=== PATIENT | male | born 1975 | race African-American/Black ===

== ENCOUNTER 2017-01-25 13:34 | Emergency (ER) | payer OTHER ==
[2017-01-25 13:38] VITALS: BP 138/76; PULSE 73; TEMP 98; BMI 25.7
[2017-01-25] MEDS ORDERED: AZITHROMYCIN 250 MG TABLET (FP) PO ONE (14:41)
[2017-01-25] MEDS ORDERED: AZITHROMYCIN 1 GM PACKET ONE (14:44)
[2017-01-25 14:46] LABS: URINE APPEARANCE CLEAR; URINE BILIRUBIN NEGATIVE (NEGATIVE); URINE BLOOD 1+ (NEGATIVE); URINE COLOR LTYELLOW; URINE GLUCOSE (UA) NEGATIVE (NEGATIVE); URINE KETONE NEGATIVE (NEGATIVE); URINE LEUK ESTERASE TRACE (NEGATIVE); URINE NITRITE NEGATIVE (NEGATIVE); URINE PROTEIN NEGATIVE (NEGATIVE); URINE UROBILINOGEN NEGATIVE mg/dL (0.2-1.0)
[2017-01-25 14:48] LABS: URINE MUCUS RARE; URINE RBC 1 /hpf (0-3); URINE WBC 3 /hpf (3-5)
--- NOTE | 2017-01-25 14:49 | PDOC ---
History of Present Illness - General Chief Complaint: Urinary Problem Stated Complaint: TINGLING FEELING Time Seen by Provider: 01/25/17 14:28 - History of Present Illness Initial Comments: 01/25/17 14:39 CHIEF COMPLAINT: burning while urinating HISTORY OF PRESENT ILLNESS: 41 yo M with no PMH presents to ED with burning while urinating since yesterday. Patient reports that he is sexually active and uses protection "But the condom did break, so that's why i'm here." He denies any fever, nausea, vomiting, diarrhea, chills, or penile discharge. PAST MEDICAL HISTORY: Denies past medical history FAMILY HISTORY: Denies SOCIAL HISTORY: Denies tobacco, alcohol, illicit drug use. SURGICAL HISTORY: Denies ALLERGIES: No known drug allergies REVIEW OF SYSTEMS General/Constitutional: Denies fever or chills. Denies weakness, weight change. HEENT: Denies change in vision. Denies ear pain or discharge. Denies sore throat. Cardiovascular: Denies chest pain or shortness of breath. Respiratory: Denies cough, wheezing, or hemoptysis. Gastrointestinal: Denies nausea, vomiting, diarrhea or constipation. Denies rectal bleeding. Genitourinary: "It eastman when I use the bathroom." PHYSICAL EXAM General Appearance: Well-appearing, appropriately dressed. No apparent distress. HEENT: EOMI, PERRLA. No photophobia, scleral icterus. Respiratory/Chest: Lungs CTAB. Cardiovascular: RRR. S1, S2. Gastrointestinal/Abdominal: Normal bowel sounds. Abdomen soft, non-distended. No tenderness or rebound tenderness. No organomegaly, pulsatile mass, guarding , hernia, hepatomegaly, splenomegaly. Genitourinary: No penile discharge, no lesions. Musculoskeletal/Extremities: Normal inspection. FROM of all extremities, normal capillary refill. Pelvis Stable. No CVA tenderness. No tenderness to extremities, pedal edema, swelling, erythema or deformity. Integumentary: Appropriate color, dry, warm. No cyanosis, erythema, jaundice or rash Neurologic: fitness coordinator II-XII intact. Fully oriented, alert. Appropriate mood/affect. Motor strength 5/5. No appreciable EOM palsy, facial droop or sensory deficit. 01/25/17 14:43 Past History - Past Medical History Allergies/Adverse Reactions: Allergies Allergy/AdvReac Type Severity Reaction Status Date / Time No Known Allergies Allergy Verified 01/25/17 13:38 Home Medications: Ambulatory Orders NK [No Known Home Medication] 05/12/16 Cancer: No Cardiac Disorders: No CVA: No COPD: No CHF: No DVT: No Dementia: No Suicide Attempt (Hx): No - Surgical History Abdominal Surgery: No Appendectomy: No Cardiac Surgery: No Cholecystectomy: No Gastric Stapling: No GI Surgery: No Lung Surgery: No Neurologic Surgery: No Orthopedic Surgery: No - Immunization History Immunization Up to Date: Yes - Psycho/Social/Smoking Cessation Hx Anxiety: No Suicidal Ideation: No Smoking Status: Yes Smoking History: Current every day smoker Have you smoked in the past 12 months: Yes Number of Cigarettes Smoked Daily: 20 Information on smoking cessation initiated: No 'Breaking Loose' booklet given: 04/26/14 Hx Alcohol Use: No Drug/Substance Use Hx: Yes Substance Use Type: Marijuana *Physical Exam - Vital Signs Last Vital Signs Temp Pulse Resp BP Pulse Ox 98 F 73 18 138/76 98 01/25/17 13:36 01/25/17 13:36 01/25/17 13:36 01/25/17 13:36 01/25/17 13:36 Medical Decision Making - Medical Decision Making 01/25/17 14:49 41 yo M with no PMH presents to ED with burning while urinating since yesterday. -UA, Ucx, Ct/GC -azithromycin, cefitriaxone Advised patient of signs and symptoms for return to ED. Patient verbalized understanding and agrees to plan. *DC/Admit/Observation/Transfer Diagnosis at time of Disposition: Possible exposure to STD - Discharge Dispostion Disposition: HOME Condition at time of disposition: Stable Admit: No - Referrals Referrals: Yan Lyles MD, MD [Primary Care Provider] - - Patient Instructions Printed Discharge Instructions: DI for Chlamydia, DI for Gonorrhea Additional Instructions: Please call us back in 3 days if you do not hear back from us regarding your urine culture. If you experience persistent symptoms, please follow up with your primary care doctor.
== END 2017-01-25 15:03 | disposition home or self-care (01) ==
LOC: JERFT 13:34
DX: Z20.2 Contact with and (suspected) exposure to infections with a predominantly sexual mode of transmission (principal)
CPT/HCPCS: 36415; 81003; 81015; 87086; 87491; 87591; 96372; 99281-25

== ENCOUNTER 2017-03-21 11:21 | Emergency (ER) | payer OTHER ==
[2017-03-21 11:25] VITALS: BP 142/80; PULSE 83; TEMP 98; BMI 25.0
--- NOTE | 2017-03-21 11:46 | PDOC ---
History of Present Illness - General Chief Complaint: Edema Stated Complaint: LIP PAIN Time Seen by Provider: 03/21/17 11:28 History Source: Patient Exam Limitations: No Limitations - History of Present Illness Initial Comments: 03/21/17 11:39 41 yr male with painful sore to the inside lower lip causing pain to the lower jaw. Pt denies fever or chills, no diff swallowing. no history of cold sores. Past History - Past Medical History Allergies/Adverse Reactions: Allergies Allergy/AdvReac Type Severity Reaction Status Date / Time No Known Allergies Allergy Verified 03/21/17 11:25 Home Medications: Ambulatory Orders Amoxicillin/Potassium Clav [Augmentin 875-125 Tablet] 1 each PO BID #10 tablet 03/21/17 Chlorhexidine Gluconate [Peridex -] 15 ml MM BID #1 btl 03/21/17 Cancer: No Cardiac Disorders: No CVA: No COPD: No CHF: No DVT: No Dementia: No Suicide Attempt (Hx): No - Surgical History Abdominal Surgery: No Appendectomy: No Cardiac Surgery: No Cholecystectomy: No Gastric Stapling: No GI Surgery: No Lung Surgery: No Neurologic Surgery: No Orthopedic Surgery: No - Immunization History Immunization Up to Date: Yes - Psycho/Social/Smoking Cessation Hx Anxiety: No Suicidal Ideation: No Smoking Status: Yes Smoking History: Current every day smoker Have you smoked in the past 12 months: Yes Number of Cigarettes Smoked Daily: 20 Information on smoking cessation initiated: No 'Breaking Loose' booklet given: 04/26/14 Hx Alcohol Use: No Drug/Substance Use Hx: Yes Substance Use Type: Marijuana *Physical Exam - Vital Signs Last Vital Signs Temp Pulse Resp BP Pulse Ox 98 F 83 18 142/80 98 03/21/17 11:22 03/21/17 11:22 03/21/17 11:22 03/21/17 11:22 03/21/17 11:22 - Physical Exam General Appearance: Yes: Nourished, Appropriately Dressed HEENT: positive: EOMI, MARILEE, Other (lower inside lip left side with white round shiny ulcer approximate 0.5cm no drainage , no redness, ttp) Respiratory/Chest: positive: Lungs Clear, Normal Breath Sounds Cardiovascular: positive: Regular Rhythm, Regular Rate Extremity: positive: Normal Capillary Refill, Normal Inspection, Normal Range of Motion Integumentary: positive: Normal Color, Dry, Warm Medical Decision Making - Medical Decision Making 03/21/17 11:49 cc: sore to lower lip with swelling to lower lip no fever or chills, no recent dental work will prescribe peridex oral solution, augmentin to cover for any gum/dental infection as pt has poor dentition, plaque to teeth no lymphadenopathy pt agrees with plan for follow up with the dentist as he understands the ulcer must be followed up pt will return if any worsening symptoms *DC/Admit/Observation/Transfer Diagnosis at time of Disposition: Mouth ulcer - Prescriptions Prescriptions: Amoxicillin/Potassium Clav [Augmentin 875-125 Tablet] 1 each PO BID #10 tablet Chlorhexidine Gluconate [Peridex -] 15 ml MM BID #1 btl - Patient Instructions Additional Instructions: follow with the dentist next week for follow up on the sore in your mouth use the mouthwash as directed take the antibiotics as directed return if any worsening symptoms
== END 2017-03-21 12:13 | disposition home or self-care (01) ==
LOC: JERFT 11:21
DX: K12.1 Other forms of stomatitis (principal)
CPT/HCPCS: 99281-25

== ENCOUNTER 2017-03-24 09:26 | Emergency (ER) | payer OTHER ==
[2017-03-24 09:35] VITALS: BP 143/79; PULSE 72; TEMP 98.3; BMI 25.9
--- NOTE | 2017-03-24 10:59 | PDOC ---
History of Present Illness - General Chief Complaint: Pain Stated Complaint: REVISIT/ SWOLLEN LIP Time Seen by Provider: 03/24/17 10:43 History Source: Patient Exam Limitations: No Limitations - History of Present Illness Initial Comments: 03/24/17 11:00 Patient is a 41-year-old male currently on antibiotics for oral injury with left lower lip swelling patient states that injury has healed has been on Augmentin and oral mouthwash, still with intermittent swelling of lower lip. Patient was concerned states he was at a club the other day kissing someone and scared he may have an STD however there is no oral lesions noted. Past Medical History: Denies. Allergies: No known allergies Medications: Augmentin and Peridex Family History: Non-contributory Social History: Denies smoking, alcohol use, or IVDU Review of Systems GENERAL/CONSTITUTIONAL: No fever or chills. No weakness. No weight change. HEAD, EYES, EARS, NOSE AND THROAT: No change in vision. No ear pain or discharge. No sore throat. CARDIOVASCULAR: No chest pain or shortness of breath. RESPIRATORY: No cough, wheezing, or hemoptysis. GASTROINTESTINAL: No nausea, vomiting, diarrhea or constipation. No rectal bleeding. GENITOURINARY: No dysuria, frequency, or change in urination. MUSCULOSKELETAL: No joint or muscle swelling or pain. No neck or back pain. SKIN : No rash or easy bruising. Swelling to left lower lip, resolving NEUROLOGIC: No headache, vertigo, loss of consciousness, or loss of sensation. PSYCHIATRIC: No depression or anxiety. ENDOCRINE: No increased thirst. No abnormal weight change. HEMATOLOGIC/LYMPHATIC: No anemia, easy bleeding, or history of blood clots. No lymphadenopathy ALLERGIC/IMMUNOLOGIC: No hives or skin allergy. No latex allergy. Physical Exam: GENERAL: The patient is awake, alert, and fully oriented, in no acute distress. ENT: Ears normal, nares patent, oropharynx clear without exudates. Moist mucous membranes. No uvula deviation. Mild swelling to left lower lip, resolving as per patient no lesions or lacerations or abrasions noted NECK: Normal range of motion, supple without lymphadenopathy, JVD, or masses. LUNGS: Breath sounds equal, clear to auscultation bilaterally. No wheezes, and no crackles. NEUROLOGICAL: Cranial nerves II through XII grossly intact. Normal speech, normal gait. PSYCH: Normal mood, normal affect. SKIN: Warm, Dry, normal turgor, no rashes or lesions noted. Mild edema to left lateral lower lip Past History - Past Medical History Allergies/Adverse Reactions: Allergies Allergy/AdvReac Type Severity Reaction Status Date / Time No Known Allergies Allergy Verified 03/24/17 09:32 Home Medications: Ambulatory Orders Amoxicillin/Potassium Clav [Augmentin 875-125 Tablet] 1 each PO BID #10 tablet 03/21/17 Chlorhexidine Gluconate [Peridex -] 15 ml MM BID #1 btl 03/21/17 Cancer: No Cardiac Disorders: No CVA: No COPD: No CHF: No DVT: No Dementia: No Other medical history: none - Surgical History Abdominal Surgery: No Appendectomy: No Cardiac Surgery: No Cholecystectomy: No Gastric Stapling: No GI Surgery: No Lung Surgery: No Neurologic Surgery: No Orthopedic Surgery: No - Immunization History Immunization Up to Date: Yes - Suicide/Smoking/Psychosocial Hx Smoking Status: Yes Smoking History: Current every day smoker Have you smoked in the past 12 months: Yes Number of Cigarettes Smoked Daily: 20 Information on smoking cessation initiated: Yes 'Breaking Loose' booklet given: 03/24/17 Hx Alcohol Use: No Drug/Substance Use Hx: No Substance Use Type: Marijuana *Physical Exam - Vital Signs Last Vital Signs Temp Pulse Resp BP Pulse Ox 98.3 F 72 18 143/79 100 03/24/17 09:33 03/24/17 09:33 03/24/17 09:33 03/24/17 09:33 03/24/17 09:33 Medical Decision Making - Medical Decision Making 03/24/17 11:04 A/P: Patient here for evaluation of resolving swelling to left lateral lower lip patient reports he had an open superficial laceration to inner left lower lip which has resolved has been on Augmentin. Asked patient states he still has this intermittent left lower lip swelling which she was concerned about concerned he may have an STD after kissing a girl at a bar. To patient that there is no prodromal pain, no open lesions, low suspicion for herpes. Patient denies any oral sex. There is no physical evidence of herpetic ulcers. We'll DC patient home, Motrin for swelling, continue oral antibiotics *DC/Admit/Observation/Transfer Diagnosis at time of Disposition: Lip swelling - Discharge Dispostion Disposition: HOME Condition at time of disposition: Good Admit: No - Referrals Referrals: Yan Lyles MD, MD [Primary Care Provider] - - Patient Instructions Additional Instructions: Continue your current antibiotics, if symptoms persist greater than 1 week follow-up with dental if any lesions present return to emergency department - Post Discharge Activity Work/School Note: Back to Work
== END 2017-03-24 11:02 | disposition home or self-care (01) ==
LOC: JERFT 09:26
DX: K13.0 Diseases of lips (principal)
CPT/HCPCS: 99281-25

== ENCOUNTER 2017-04-01 19:46 | Emergency (ER) | payer OTHER ==
[2017-04-01 20:02] VITALS: BP 144/92; PULSE 72; TEMP 98.4; BMI 25.0
[2017-04-01 20:21] LABS: URINE APPEARANCE CLEAR; URINE BILIRUBIN NEGATIVE (NEGATIVE); URINE BLOOD NEGATIVE (NEGATIVE); URINE COLOR YELLOW; URINE GLUCOSE (UA) NEGATIVE (NEGATIVE); URINE KETONE NEGATIVE (NEGATIVE); URINE LEUK ESTERASE NEGATIVE (NEGATIVE); URINE NITRITE NEGATIVE (NEGATIVE); URINE PROTEIN NEGATIVE (NEGATIVE); URINE UROBILINOGEN NEGATIVE mg/dL (0.2-1.0)
--- NOTE | 2017-04-01 21:09 | PDOC ---
History of Present Illness - General Chief Complaint: Urinary Problem Stated Complaint: STOMACH PAIN Time Seen by Provider: 04/01/17 20:08 History Source: Patient Exam Limitations: No Limitations - History of Present Illness Initial Comments: 04/01/17 20:19 Patient is a 41-year-old male with no past medical history presents to the emergency department tonight complaining of tingling sensation when he. Patient states that he was sexually active with a new woman a couple days ago when the condom broke. He is fearful that he has an STD. Presents for the "STD shot". Denies fevers, chills, discharge, hematuria, frequency, urgency, dysuria. Past History - Travel Traveled outside of the country in the last 30 days: No Close contact w/someone who was outside of country & ill: No - Past Medical History Allergies/Adverse Reactions: Allergies Allergy/AdvReac Type Severity Reaction Status Date / Time No Known Allergies Allergy Verified 04/01/17 20:02 Home Medications: Ambulatory Orders NK [No Known Home Medication] 04/01/17 Cancer: No Cardiac Disorders: No CVA: No COPD: No CHF: No DVT: No Dementia: No - Surgical History Abdominal Surgery: No Appendectomy: No Cardiac Surgery: No Cholecystectomy: No Gastric Stapling: No GI Surgery: No Lung Surgery: No Neurologic Surgery: No Orthopedic Surgery: No - Immunization History Immunization Up to Date: Yes - Suicide/Smoking/Psychosocial Hx Smoking Status: Yes Smoking History: Current every day smoker Have you smoked in the past 12 months: Yes Number of Cigarettes Smoked Daily: 20 Information on smoking cessation initiated: No 'Breaking Loose' booklet given: 03/24/17 Hx Alcohol Use: No Drug/Substance Use Hx: No Substance Use Type: Marijuana Review of Systems - Review of Systems Able to Perform ROS?: Yes Comments:: 04/01/17 21:25 CONSTITUTIONAL: Absent: fever, chills, diaphoresis, generalized weakness, malaise, loss of appetite HEENT: Absent: rhinorrhea, nasal congestion, throat pain, throat swelling, difficulty swallowing, mouth swelling, ear pain, eye pain, visual Changes CARDIOVASCULAR: Absent: chest pain, loss of consciousness, palpitations, irregular heart rate, peripheral edema RESPIRATORY: Absent: cough, shortness of breath, dyspnea with exertion, orthopnea, wheezing, stridor, hemoptysis GASTROINTESTINAL: Absent: abdominal pain, abdominal distension, nausea, vomiting, diarrhea, constipation, melena, hematochezia GENITOURINARY: Present: Tingling when urinating Absent: dysuria, frequency, urgency, hesitancy , hematuria, flank pain, genital pain MUSCULOSKELETAL: Absent: myalgia, arthralgia, joint swelling SKIN: Absent: rash, itching, pallor HEMATOLOGIC/IMMUNOLOGIC: Absent: easy bleeding, easy bruising, lymphadenopathy, frequent infections ENDOCRINE: Absent: unexplained weight gain, unexplained weight loss, heat intolerance, cold intolerance NEUROLOGIC: Absent: headache, focal weakness or paresthesias, dizziness, unsteady gait, seizure, mental status changes, bladder or bowel incontinence PSYCHIATRIC: Absent: anxiety, depression, suicidal or homicidal ideation, hallucinations. Is the patient limited Bulgarian proficient: No *Physical Exam - Vital Signs Last Vital Signs Temp Pulse Resp BP Pulse Ox 98.4 F 72 18 144/92 99 04/01/17 20:00 04/01/17 20:00 04/01/17 20:00 04/01/17 20:00 04/01/17 20:00 - Physical Exam Comments: 04/01/17 21:25 GENERAL: [The patient is awake, alert, and fully oriented, in no acute distress. ] HEAD: [Normal with no signs of trauma.] EYES: [Pupils equal, round and reactive to light, extraocular movements intact, sclera anicteric, conjunctiva clear.] EXTREMITIES: [Normal range of motion, no edema.] NEUROLOGICAL: [Normal speech, normal gait.] PSYCH: [Normal mood, normal affect.] SKIN: [Warm, Dry, normal turgor, no rashes or lesions noted.] : Circumsized penis with no visible lesions on the shaft or scrotal sac. No obvious drainage/discharge from the urethra ED Treatment Course - ADDITIONAL ORDERS Additional order review: Laboratory Results 04/01/17 20:00 Urine Color Yellow Urine Appearance Clear Urine pH 5.0 Urine Protein Negative Urine Glucose (UA) Negative Urine Ketones Negative Urine Blood Negative Urine Nitrite Negative Urine Bilirubin Negative Urine Urobilinogen Negative Medical Decision Making - Medical Decision Making 04/01/17 21:20 Patient is a 41-year-old male with no past medical history who presents to the emergency department today complaining of tingling on urination. Given that he has had sexual relations with a new partner with condom breakage will treat for STDs at this time. UA obtained while the patient was waiting to be seen is negative for urinary tract infection. We will treat with 250 mg of ceftriaxone and 1 g of azithromycin. GC/Chlamydia amplification taken from the urine sample. Patient denies further STD testing stating that he will have it done by his primary care doctor. Will discharge home at this time. *DC/Admit/Observation/Transfer Diagnosis at time of Disposition: Possible exposure to STD - Discharge Dispostion Disposition: HOME Condition at time of disposition: Good Admit: No - Referrals Referrals: Yan Lyles MD, MD [Primary Care Provider] - - Patient Instructions Printed Discharge Instructions: DI for Gonorrhea, DI for Chlamydia Additional Instructions: Your prophylactically treated for STDs today including chlamydia and gonorrhea. Your given antibiotics here in the ER. A culture was taken and results should be available sometime early next week. Follow up with her primary care doctor for any further STD testing. Return to the emergency department if you have fevers, chills, worsening pain, discharge or any changes in your symptoms.
[2017-04-01] MEDS ORDERED: AZITHROMYCIN 500 MG TABLET PO ONE (21:12)
[2017-04-01] MEDS ORDERED: AZITHROMYCIN 250 MG TABLET ONE (21:21)
== END 2017-04-01 21:31 | disposition home or self-care (01) ==
LOC: JERFT 19:46
DX: Z20.2 Contact with and (suspected) exposure to infections with a predominantly sexual mode of transmission (principal)
CPT/HCPCS: 36415; 81003; 87086; 87491; 87591; 99281-25

== ENCOUNTER 2017-04-10 08:39 | Emergency (ER) | payer OTHER ==
[2017-04-10 08:47] VITALS: BP 139/82; PULSE 79; TEMP 98.8; BMI 25.0
[2017-04-10 10:15] LABS: URINE APPEARANCE CLEAR; URINE BILIRUBIN NEGATIVE (NEGATIVE); URINE BLOOD 1+ (NEGATIVE); URINE COLOR YELLOW; URINE GLUCOSE (UA) NEGATIVE (NEGATIVE); URINE KETONE NEGATIVE (NEGATIVE); URINE NITRITE NEGATIVE (NEGATIVE); URINE PROTEIN NEGATIVE (NEGATIVE)
--- NOTE | 2017-04-10 10:15 | PDOC ---
History of Present Illness - General Chief Complaint: Penile Drainage Stated Complaint: URINARY RETENTION Time Seen by Provider: 04/10/17 09:20 History Source: Patient Exam Limitations: No Limitations - History of Present Illness Initial Comments: 04/10/17 10:13 CHIEF COMPLAINT: Patient feels like the tip of his penis is edematous HISTORY OF PRESENT ILLNESS: Patient is a 41-year-old male with no past medical history presents to the emergency department today complaining of swelling to tip of penis states that he keeps having the same issue was seen in the emergency department last week for the same. Was seen prior also for same. Each time was seen results were negative. Denies any lesions, no penile discharge, no testicular pain. Patient states that he was sexually active with a new woman and only had oral sex. He is fearful that he has an STD. Denies fevers, chills, discharge, hematuria, frequency, urgency, dysuria. Timing/Duration: reports: intermittent Quality: reports: mild Abdominal Pain Onset Location: reports: other (Denies abdominal pain) Pain Radiation: reports: no radiation Activities at Onset: reports: none Past History - Past Medical History Allergies/Adverse Reactions: Allergies Allergy/AdvReac Type Severity Reaction Status Date / Time No Known Allergies Allergy Verified 04/10/17 08:47 Home Medications: Ambulatory Orders NK [No Known Home Medication] 04/01/17 Cancer: No Cardiac Disorders: No CVA: No COPD: No CHF: No DVT: No Dementia: No - Surgical History Abdominal Surgery: No Appendectomy: No Cardiac Surgery: No Cholecystectomy: No Gastric Stapling: No GI Surgery: No Lung Surgery: No Neurologic Surgery: No Orthopedic Surgery: No - Immunization History Immunization Up to Date: Yes - Suicide/Smoking/Psychosocial Hx Smoking Status: Yes Smoking History: Current every day smoker Have you smoked in the past 12 months: Yes Number of Cigarettes Smoked Daily: 20 Information on smoking cessation initiated: No 'Breaking Loose' booklet given: 03/24/17 Hx Alcohol Use: Yes (daily) Drug/Substance Use Hx: Yes (marijuana daily) Substance Use Type: Alcohol, Marijuana Review of Systems - Review of Systems Constitutional: No: Symptoms Reported HEENTM: No: Symptoms Reported Respiratory: No: Symptoms reported Cardiac (ROS): No: Symptoms Reported ABD/GI: No: Symptoms Reported : No: Dysuria, Discharge, Frequency, Flank Pain, Hematuria, Incontinence, Pain , Urgency, Testicular Mass, Testicular Swelling, Lesions, Testicular Pain Musculoskeletal: No: Symptoms Reported Hematologic/Lymphatic: No: Symptoms Reported All Other Systems: Reviewed and Negative *Physical Exam - Vital Signs Last Vital Signs Temp Pulse Resp BP Pulse Ox 98.8 F 79 18 139/82 99 04/10/17 08:44 04/10/17 08:44 04/10/17 08:44 04/10/17 08:44 04/10/17 08:44 - Physical Exam General Appearance: Yes: Appropriately Dressed. No: Apparent Distress Neck: negative: Tender lateral, Tender midline Respiratory/Chest: positive: Lungs Clear, Normal Breath Sounds. negative: Respiratory Distress, Accessory Muscle Use Cardiovascular: positive: Regular Rhythm, Regular Rate Gastrointestinal/Abdominal: positive: Normal Bowel Sounds, Soft. negative: Tender Male Genitalia: positive: normal genitalia. negative: discharge, testicular tenderness, testicular mass, epididymus tender, inguinal hernia, hematuria Lymphatic: negative: Adenopathy Integumentary: positive: Normal Color, Dry, Other (no lesions). negative: Erythema, Swelling, Ecchymosis, Bruising Neurologic: positive: Alert, Normal Mood/Affect, Normal Response, Motor Strength 5/5 Medical Decision Making - Medical Decision Making 04/10/17 10:21 A/P: Patient here for evaluation of sensation of feeling tip of penis is edematous and tingling, there is no penile discharge, no swelling, no lesions noted examination is benign. Patient is refusing prostate examination. Also unable to fully insert chlamydia testing. Only able to place in tip of penis. Patient is refusing any other examination. There is no clinical signs of STD, patient is asymptomatic besides feeling tip of penis is enlarged however there is no enlargement noted on examination. Send gonorrhea Chlamydia, RPR, HIV. 04/10/17 11:46 Laboratory Results - last 24 hr 04/10/17 04/10/17 09:30 09:35 Urine Color Yellow Urine Appearance Clear Urine pH 6.0 Ur Specific [place] 1.015 Urine Protein Negative Urine Glucose (UA) Negative Urine Ketones Negative Urine Blood 1+ H Urine Nitrite Negative Urine Bilirubin Negative Urine Urobilinogen 2.0 Ur Leukocyte Esterase Negative Urine RBC 4 Urine WBC <1 Ur Epithelial Cells Rare Urine Bacteria Rare HIV 1&2 Antibody Screen Negative HIV P24 Antigen Negative Urine analysis with +1 blood, RBCs of 4 most likely traumatic from penile manipulation during testing. Patient is now referred to urology for ongoing discomfort, there is no evidence of STDs. Denies any sexual intercourse only had oral sex. Will follow-up as instructed, copy of HIV given to patient, negative. I discussed the physical exam findings, ancillary test results and final diagnoses with the patient. I answered all of the patient's questions. The patient was satisfied with the care received and felt comfortable with the discharge plan and treatment plan. The patient will call to arrange follow-up and will return to the Emergency Department with any new, persistent or worsening symptoms. *DC/Admit/Observation/Transfer Diagnosis at time of Disposition: Penile swelling - Discharge Dispostion Disposition: HOME Condition at time of disposition: Good Admit: No - Referrals Referrals: Malik Tracy MD [Staff Physician] - - Patient Instructions Additional Instructions: Because you are Having ongoing discomfort, recommend now follow-up with urology if the doctor given does not take her insurance please call the back of your insurance card and asked for urologist Refrain from sexual activity for at least 2 weeks Please call [phone] in one week for results of gonorrhea Chlamydia testing
[2017-04-10 10:33] LABS: URINE LEUK ESTERASE Negative (NEGATIVE)
[2017-04-10 10:42] LABS: URINE BACTERIA RARE /hpf (NONE SEEN); URINE RBC 4 /hpf (0-3); URINE WBC <1 /hpf (3-5)
[2017-04-10 11:37] LABS: HIV 1 & 2 AB NEGATIVE; HIV 1 AGp24 NEGATIVE
== END 2017-04-10 11:51 | disposition home or self-care (01) ==
LOC: JER 08:39 → JERFT 08:39
DX: N48.89 Other specified disorders of penis (principal); F17.210 Nicotine dependence, cigarettes, uncomplicated
CPT/HCPCS: 36415; 81003; 81015; 86593; 87389; 87491; 87591; 99281-25

== ENCOUNTER 2017-08-11 13:14 | Emergency (ER) | payer OTHER ==
[2017-08-11 13:20] VITALS: BP 131/80; PULSE 71; TEMP 98.6; BMI 23.7
--- NOTE | 2017-08-12 15:47 | EKG ---
Test Reason : Blood Pressure : / mmHG Vent. Rate : 066 BPM Atrial Rate : 066 BPM P-R Int : 166 ms QRS Dur : 108 ms QT Int : 356 ms P-R-T Axes : 039 -43 025 degrees QTc Int : 373 ms NORMAL SINUS RHYTHM LEFT AXIS DEVIATION RSR' OR QR PATTERN IN V1 SUGGESTS RIGHT VENTRICULAR CONDUCTION DELAY ABNORMAL ECG NO PREVIOUS ECGS AVAILABLE Confirmed by DUSTY MCKEON, MELANIA ([id number]) on 08/12/2017 3:47:27 PM Referred By: Confirmed By:MELANIA MONTANO MD
== END 2017-08-11 15:09 | disposition left against medical advice (07) ==
LOC: JER 13:14
DX: Z53.21 Procedure and treatment not carried out due to patient leaving prior to being seen by health care provider (principal)
CPT/HCPCS: 93005; 93010; 99281-25

== ENCOUNTER 2017-09-30 23:32 | Emergency (ER) | payer OTHER ==
[2017-10-01 00:20] VITALS: BP 139/87; PULSE 74; TEMP 97.6; BMI 25.7
--- NOTE | 2017-10-01 00:53 | PDOC ---
History of Present Illness - General Chief Complaint: Pain, Acute Stated Complaint: PAIN Time Seen by Provider: 10/01/17 00:44 History Source: Patient - History of Present Illness Initial Comments: 10/01/17 01:25 41 year old male with lateral neck pain radiating to left arm after lifting weights at the gym earlier today. pain worse with movement and is reproducible. Past History - Past Medical History Allergies/Adverse Reactions: Allergies Allergy/AdvReac Type Severity Reaction Status Date / Time No Known Allergies Allergy Verified 10/01/17 00:16 Home Medications: Ambulatory Orders Cyclobenzaprine HCl [Flexeril -] 10 mg PO TID PRN #21 tablet 10/01/17 Ibuprofen 600 mg PO QID PRN #30 tablet 10/01/17 Cancer: No Cardiac Disorders: No CVA: No COPD: No CHF: No DVT: No Dementia: No - Surgical History Abdominal Surgery: No Appendectomy: No Cardiac Surgery: No Cholecystectomy: No Gastric Stapling: No GI Surgery: No Lung Surgery: No Neurologic Surgery: No Orthopedic Surgery: No - Immunization History Immunization Up to Date: Yes - Suicide/Smoking/Psychosocial Hx Smoking Status: Yes Smoking History: Current every day smoker Have you smoked in the past 12 months: Yes Number of Cigarettes Smoked Daily: 20 Information on smoking cessation initiated: No 'Breaking Loose' booklet given: 03/24/17 Hx Alcohol Use: No Drug/Substance Use Hx: No Substance Use Type: None Review of Systems - Review of Systems Able to Perform ROS?: Yes Is the patient limited [place] Citizen proficient: No Musculoskeletal: Yes: Muscle Pain, Neck Pain *Physical Exam - Vital Signs Last Vital Signs Temp Pulse Resp BP Pulse Ox 97.6 F 74 20 139/87 98 10/01/17 00:16 10/01/17 00:16 10/01/17 00:16 10/01/17 00:16 10/01/17 00:16 - Physical Exam General Appearance: Yes: Appropriately Dressed Neck: positive: Tender lateral (left side of neck. no midline tenderness) Musculoskeletal: positive: Muscle Spasm (left side of neck) Extremity: positive: Normal Inspection, Normal Range of Motion *DC/Admit/Observation/Transfer Diagnosis at time of Disposition: Muscle spasm, Neck pain on left side - Discharge Dispostion Disposition: HOME - Prescriptions Prescriptions: Cyclobenzaprine HCl [Flexeril -] 10 mg PO TID PRN #21 tablet PRN Reason: Muscle Spasms Ibuprofen 600 mg PO QID PRN #30 tablet PRN Reason: Pain Level 1 - 3 - Referrals - Patient Instructions Printed Discharge Instructions: Muscle Strain Additional Instructions: apply ice/ heat to the area. take ibuprofen every 6 hours for pain take flexeril every 6 hours for muscle spasms. do not drive or operate heavy machinery after taking this medication. follow up with your doctor as soon as possible. - Post Discharge Activity Forms/Work/School Notes: Back to Work
[2017-10-01] MEDS ORDERED: KETOROLAC TROMETHAMINE 60 MG/2 ML VIAL IM ONE (00:54)
[2017-10-01] MEDS ORDERED: KETOROLAC TROMETHAMINE 60 MG/2 ML VIAL ONE (00:55)
[2017-10-01] MEDS ORDERED: diazePAM 5 MG TABLET PO ONE (01:24)
[2017-10-01] MEDS ORDERED: diazePAM 5 MG TABLET ONE ×2 (01:27→01:29)
== END 2017-10-01 01:36 | disposition home or self-care (01) ==
LOC: JER 23:32
PROC: 3E0233Z Introduction of Anti-inflammatory into Muscle, Percutaneous Approach (ICD-10-PCS; principal; 2017-09-30)
DX: M54.2 Cervicalgia (principal); M62.838 Other muscle spasm; F17.210 Nicotine dependence, cigarettes, uncomplicated
CPT/HCPCS: 72050-TC-FY; 99283-25

== ENCOUNTER 2017-12-08 13:12 | Emergency (ER) | payer OTHER ==
[2017-12-08 13:17] VITALS: BP 150/87; PULSE 82; TEMP 98.3; BMI 27.1
--- NOTE | 2017-12-08 14:11 | PDOC ---
History of Present Illness - General Chief Complaint: Pain Stated Complaint: ABD PAIN Time Seen by Provider: 12/08/17 13:51 - History of Present Illness Initial Comments: 12/08/17 14:11 The patient is a 42 year old male with no significant PMH who presents for evaluation of groin pain and a penile abnormality. The patient reports experiencing a brief episode of left sided groin pain 1 day ago while lifting a heavy object helping his friend move. He notes that the pain resolved without intervention and did not experience any sensation of a bludge. He noted a small abnormality on the skin of his penile shaft today prompting his presentation to the ED for further evaluation. He otherwise denies fevers, chills, SOB, chest pain, nausea, vomiting, abdominal pain, or changes with urination or bowel movements. Past History - Past Medical History Allergies/Adverse Reactions: Allergies Allergy/AdvReac Type Severity Reaction Status Date / Time No Known Allergies Allergy Verified 12/08/17 13:15 Home Medications: Ambulatory Orders NK [No Known Home Medication] 12/08/17 Cancer: No Cardiac Disorders: No CVA: No COPD: No CHF: No DVT: No Dementia: No - Surgical History Abdominal Surgery: No Appendectomy: No Cardiac Surgery: No Cholecystectomy: No Gastric Stapling: No GI Surgery: No Lung Surgery: No Neurologic Surgery: No Orthopedic Surgery: No - Immunization History Immunization Up to Date: Yes - Suicide/Smoking/Psychosocial Hx Smoking Status: Yes Smoking History: Current every day smoker Have you smoked in the past 12 months: No Number of Cigarettes Smoked Daily: 20 Information on smoking cessation initiated: No 'Breaking Loose' booklet given: 03/24/17 Hx Alcohol Use: No Drug/Substance Use Hx: No Substance Use Type: None Review of Systems - Review of Systems Comments:: 12/08/17 14:37 Constitutional: No fevers, chills, fatigue, malaise HEENT: No Rhinorrhea, nasal congestion, visual changes Cardiovascular: No chest pain, syncope, palpitations, lightheadedness Respiratory: No Cough, SOB, Hemoptysis, Gastrointestinal: No Abdominal pain, Nausea, Vomiting, Constipation, Diarrhea, Melena Genitourinary: Groin Pain. No Dysuria, Frequency, Urgency, Hesitancy, Hematuria , Flank pain Musculoskeletal: No Myalgia, arthralgia Skin: No rashes, itching, bruising, pallor Neurologic: No Headache, Dizziness, Numbness, Weakness, or Tingling Psychiatric: No Hallucinations. No SI or HI *Physical Exam - Vital Signs Last Vital Signs Temp Pulse Resp BP Pulse Ox 98.3 F 82 18 150/87 97 12/08/17 13:16 12/08/17 13:16 12/08/17 13:16 12/08/17 13:16 12/08/17 13:16 - Physical Exam Comments: 12/08/17 14:39 General Appearance: Nourished. No Apparent Distress HEENT: EOMI, MARILEE. No Pharyngeal Erythema, Tonsillar Exudate, Tonsillar Erythema Neck: No Cervical Lymphadenopathy Respiratory/Chest: Lungs Clear, Normal Breath Sounds. No Crackles, Rales, Rhonchi, Wheezing Cardiovascular: Regular Rhythm, Regular Rate. No Murmur, Gallops, Rubs Gastrointestinal/Abdominal: Normal Bowel Sounds, Soft. No Guarding, Rebound, Tenderness Genital Exam: No palpable hernia's noted. None tender. Small rash consistent with dry skin. No notable lesions, discharge or tenderness. Musculoskeletal: No CVA Tenderness Extremity: Normal Capillary Refill Integumentary: Normal Color, Dry, Warm Neurologic: Fully Oriented, Alert, Normal Mood/Affect, Normal Response, Medical Decision Making - Medical Decision Making 12/08/17 14:43 The patient is a 42 year old male with no significant PMH who presents for evaluation of groin pain and a penile abnormality. The lesion on the patient's penis appears to be dry skin and does not demonstrate any concerning findings and we have low suspicion for syphilis, herpes, or fungal infection. There is no palpable hernia on exam and it is likely his symptoms are due to a muscle strain. We will send a ua, g/c amplification to evaluate further. The patient requests discharge home. We are comfortable discharging the patient home at this time with urology and primary care provider follow up. We discussed the plan and return precautions with the patient who voiced understanding and is agreeable with the plan. *DC/Admit/Observation/Transfer Diagnosis at time of Disposition: Penile abnormality - Discharge Dispostion Disposition: HOME Condition at time of disposition: Stable Decision to Admit order: No - Referrals Referrals: Evans Beyer MD., MD [Staff Physician] - - Patient Instructions Printed Discharge Instructions: DI for Groin Hernia Additional Instructions: Please return to the ER if you experience concerning or worsening symptoms including worsening abdominal pain, fevers, or discharge. Please call to schedule a follow up appointment with our urologist Dr. Beyer and your primary care provider within 2-3 days to discuss your ER visit and further management of your symptoms. - Post Discharge Activity
[2017-12-08 15:09] LABS: URINE APPEARANCE CLEAR; URINE BILIRUBIN NEGATIVE (<2.0 mg/dL); URINE BLOOD NEGATIVE (NEGATIVE); URINE COLOR YELLOW; URINE GLUCOSE (UA) NEGATIVE (NEGATIVE); URINE KETONE NEGATIVE (NEGATIVE); URINE LEUK ESTERASE NEGATIVE (NEGATIVE); URINE NITRITE NEGATIVE (NEGATIVE); URINE PROTEIN NEGATIVE (NEGATIVE); URINE UROBILINOGEN NEGATIVE mg/dL (0.2-1.0)
--- NOTE | 2017-12-08 15:39 | PDOC ---
Attending Attestation - Resident Resident Name: Sameer Evans - ED Attending Attestation I have performed the following: I have examined & evaluated the patient, The case was reviewed & discussed with the resident, I agree w/resident's findings & plan, Exceptions are as noted - Physicial Exam PE: 12/08/17 15:36 awake alert lungs clear bilaterally heart rrr no mrg. abd soft nt nd. skin warm and dry. abd soft nt nd. groin no palp hernia. penile exam ( dr. evans present) no testicular tenderness. no scrotal hernia. penile shaft small scaly lesion measuring 3mm x 2mm. no ulceration. no penile discharge. - Medical Decision Making 12/08/17 15:38 differential excoriated skin with healing scale. dry skin, no appearance of fungal dermatitis, no ulceration to suggest herpetic lesion or syphillis. pt offered std testing such as syphillis or gc/ chlamydia declined. ua sent negative. pt will follow up wtih pcp, given warning signs for hernia. dc home. <Almita Zelaya - Last Filed: 12/08/17 15:36> - HPI HPI: 12/08/17 15:39 The patient is a 42 year old male, with no significant PMH, who presents to the emergency department for evaluation of left sided groin pain. The patient states he was helping a friend move yesterday when he lifted a heavy object and experienced a sudden onset of left sided groin pain which has since resolved on its own. The patient has a second complaint of a jamaal on the penile shaft that he noticed today which prompted the patient to come to the ED for evaluation. He denies any history of STIs. The patient denies chest pain, shortness of breath, headache and dizziness. Denies fever, chills, nausea, vomit, diarrhea and constipation. Denies dysuria, frequency, urgency and hematuria. Allergies: NKA Documentation prepared by Jj Parson, acting as medical insurance verifier for Almita Zelaya MD. <Jj Parson - Last Filed: 12/08/17 15:41>
== END 2017-12-08 14:48 | disposition home or self-care (01) ==
LOC: JER 13:12
DX: L85.3 Xerosis cutis (principal)
CPT/HCPCS: 36415; 81003; 87491; 87591; 99281-25

== ENCOUNTER 2018-03-09 23:54 | Emergency (ER) | payer OTHER ==
[2018-03-10 01:55] VITALS: BP 136/72; PULSE 68; TEMP 98.7; BMI 27.1
--- NOTE | 2018-03-11 13:46 | EKG ---
Test Reason : Blood Pressure : / mmHG Vent. Rate : 066 BPM Atrial Rate : 066 BPM P-R Int : 172 ms QRS Dur : 112 ms QT Int : 372 ms P-R-T Axes : 056 -42 030 degrees QTc Int : 389 ms NORMAL SINUS RHYTHM LEFT AXIS DEVIATION RSR' OR QR PATTERN IN V1 SUGGESTS RIGHT VENTRICULAR CONDUCTION DELAY ABNORMAL ECG WHEN COMPARED WITH ECG OF 11-AUG-2017 13:23, NO SIGNIFICANT CHANGE WAS FOUND Confirmed by FEDERICO WADE MD ([id number]) on 03/11/2018 1:46:16 PM Referred By: Confirmed By:FEDERICO WADE MD
== END 2018-03-10 02:51 | disposition left against medical advice (07) ==
LOC: JER 23:54
DX: Z53.21 Procedure and treatment not carried out due to patient leaving prior to being seen by health care provider (principal)
CPT/HCPCS: 93005; 93010; 99281-25

== ENCOUNTER 2018-03-10 12:25 | Emergency (ER) | payer OTHER ==
[2018-03-10 12:35] VITALS: BP 126/75; PULSE 72; TEMP 98; BMI 27.1
== END 2018-03-10 14:05 | disposition left against medical advice (07) ==
LOC: JER 12:25
DX: Z53.21 Procedure and treatment not carried out due to patient leaving prior to being seen by health care provider (principal)
CPT/HCPCS: 99281-25

== ENCOUNTER 2018-06-09 10:40 | Emergency (ER) | payer OTHER ==
[2018-06-09 11:26] VITALS: BP 130/80; PULSE 69; TEMP 97.8; BMI 27.8
--- NOTE | 2018-06-09 13:22 | PDOC ---
History of Present Illness - General Chief Complaint: Injury Stated Complaint: PCP SENT/INJURY Time Seen by Provider: 06/09/18 12:10 History Source: Patient Exam Limitations: Clinical Condition - History of Present Illness Initial Comments: 06/09/18 13:12 Patient with no significant past medication present for evaluation of right hand intermittent pain status post punching a wall a month ago. Patient reported he was instructed by his PCP to have x-ray done a month ago but never followed up. Patient also reported 2 weeks history of pain to right little toe after banging the toe on door 2 weeks ago. Patient denies any other symptoms Timing/Duration: other (1 month) Past History - Past Medical History Allergies/Adverse Reactions: Allergies Allergy/AdvReac Type Severity Reaction Status Date / Time No Known Allergies Allergy Verified 06/09/18 11:23 Home Medications: Ambulatory Orders Naproxen 500 mg PO BID PRN #20 tablet 06/09/18 Asthma: Yes Cancer: No Cardiac Disorders: No CVA: No COPD: No CHF: No DVT: No Dementia: No - Surgical History Abdominal Surgery: No Appendectomy: No Cardiac Surgery: No Cholecystectomy: No Gastric Stapling: No GI Surgery: No Lung Surgery: No Neurologic Surgery: No Orthopedic Surgery: No - Immunization History Immunization Up to Date: Yes - Suicide/Smoking/Psychosocial Hx Smoking Status: Yes Smoking History: Current every day smoker Have you smoked in the past 12 months: Yes Number of Cigarettes Smoked Daily: 20 Information on smoking cessation initiated: No 'Breaking Loose' booklet given: 12/08/17 Hx Alcohol Use: Yes (Daily Chel) Drug/Substance Use Hx: Yes (Marijuana) Substance Use Type: None Review of Systems - Review of Systems Able to Perform ROS?: Yes Is the patient limited [place] proficient: No Constitutional: No: Weakness Respiratory: No: Symptoms reported Cardiac (ROS): No: Symptoms Reported ABD/GI: No: Symptoms Reported Musculoskeletal: Yes: See HPI, Joint Pain (right knuckles/hand), Muscle Pain ( right hand and little toe). No: Joint Swelling, Joint Stiffness All Other Systems: Reviewed and Negative *Physical Exam - Vital Signs Last Vital Signs Temp Pulse Resp BP Pulse Ox 97.8 F 69 17 130/80 100 06/09/18 11:23 06/09/18 11:23 06/09/18 11:23 06/09/18 11:23 06/09/18 11:23 - Physical Exam Comments: 06/09/18 13:59 GENERAL: Well developed, well nourished. Awake and alert. No acute distress. CARDIOVASCULAR: Regular rate and rhythm. No murmurs, rubs, or gallops. PULMONARY: No evidence of respiratory distress. Lungs clear to auscultation bilaterally. No wheezing, rales or rhonchi. ABDOMINAL: Soft. Non-tender. Non-distended. No rebound or guarding. No organomegaly. Normoactive bowel sounds MUSCULOSKELETAL : mild tenderness over dorsal aspect of base of right little toe. no tenderness to right hand. small rotation of right index finger when making a fist. No bony deformities EXTREMITIES: No cyanosis. No clubbing. No edema. No calf tenderness. SKIN: Warm and dry. Normal capillary refill. No rashes. No jaundice. NEUROLOGICAL: Alert, awake, appropriate. No motor deficits in the lower extremities. Gait is normal without ataxia. PSYCHIATRIC: Cooperative. Good eye contact. Appropriate mood and affect. General Appearance: Yes: Nourished, Appropriately Dressed. No: Apparent Distress Moderate Sedation - Procedure Monitoring Vital Signs: Procedure Monitoring Vital Signs Temperature 97.8 F 06/09/18 11:23 Pulse Rate 69 06/09/18 11:23 Respiratory Rate 17 06/09/18 11:23 Blood Pressure 130/80 06/09/18 11:23 O2 Sat by Pulse Oximetry (%) 100 06/09/18 11:23 ED Treatment Course - RADIOLOGY Radiology Studies Ordered: Category Date Time Status HAND- RIGHT [RAD] Stat Radiology 06/09/18 12:21 Completed TOE(S) RIGHT [RAD] Stat Radiology 06/09/18 12:22 Completed Medical Decision Making - Medical Decision Making 06/09/18 13:22 Patient with no significant past medication present for evaluation of right hand intermittent pain status post punching a wall a month ago. Patient reported he was instructed by his PCP to have x-ray done a month ago but never followed up. Patient also reported 2 weeks history of pain to right little toe after banging the toe on door 2 weeks ago Exam significant for mild rotation of right index finger when making fist. mild tenderness to base of right little toe. no visible deformity 06/09/18 14:01 x-rays of right hand shows old healed fracture of right 2nd mid- metacarpal bone with 40 degrees ulnar deviation of fracture/ distal part of metacarpal. no acute pathology seen on right toes. patient cannot be splint given fracture already a month old and healed. patient stable for discharge on naproxen as needed for pain with orthopedics follow-up as needed *DC/Admit/Observation/Transfer Diagnosis at time of Disposition: Fracture of second metacarpal bone of right hand Qualifiers: Encounter type: initial encounter Fracture type: closed Metacarpal location: shaft Fracture alignment: displaced Qualified Code(s): S62.320A - Displaced fracture of shaft of second metacarpal bone, right hand, initial encounter for closed fracture Contusion of lesser toe of right foot without damage to nail Qualifiers: Encounter type: initial encounter Qualified Code(s): S90.121A - Contusion of right lesser toe(s) without damage to nail, initial encounter - Discharge Dispostion Disposition: HOME Condition at time of disposition: Stable Decision to Admit order: No - Prescriptions Prescriptions: Naproxen 500 mg PO BID PRN #20 tablet PRN Reason: pain - Referrals Referrals: Hector Medina MD [Staff Physician] - - Patient Instructions Additional Instructions: X-ray of right hand shows old healed fracture of the right second finger. Nothing can be done of fracture given a months old and healed. X-ray of right to shows no acute fracture. Take prescribed medication as needed for pain. Follow-up referred orthopedics as needed - Post Discharge Activity
== END 2018-06-09 13:32 | disposition home or self-care (01) ==
LOC: JERFT 10:40
DX: S62.320A Displaced fracture of shaft of second metacarpal bone, right hand, initial encounter for closed fracture (principal); S90.121A Contusion of right lesser toe(s) without damage to nail, initial encounter; W22.8XXA Striking against or struck by other objects, initial encounter; Y93.89 Activity, other specified; Y92.89 Other specified places as the place of occurrence of the external cause; Y99.8 Other external cause status
CPT/HCPCS: 73130-TC-RT-FY; 73660-TC-FY; 99281-25

== ENCOUNTER 2018-06-30 09:48 | Emergency (ER) | payer OTHER ==
[2018-06-30 10:01] VITALS: BP 138/93; PULSE 79; TEMP 98.2; BMI 27.1
[2018-06-30] MEDS ORDERED: AZITHROMYCIN 500 MG TABLET PO ONE (10:35)
[2018-06-30] MEDS ORDERED: AZITHROMYCIN 250 MG TABLET ONE (10:38)
[2018-06-30] MEDS ORDERED: LIDOCAINE HCL 1%, 10 MG/ML (20ML VIAL) ONE (10:38)
--- NOTE | 2018-06-30 10:41 | PDOC ---
History of Present Illness - General Chief Complaint: Constipation Stated Complaint: std treatment Time Seen by Provider: 06/30/18 10:33 History Source: Patient Exam Limitations: Clinical Condition - History of Present Illness Initial Comments: 06/30/18 10:37 Patient with no significant past medical history present with complaint of having unprotected sex with a female partner week ago and only sure if female partner has any STDs. And wants to be treated for possible chlamydia. Patient denies any symptoms now. Patient declined any other STD testing. Timing/Duration: 1 week Past History - Past Medical History Allergies/Adverse Reactions: Allergies Allergy/AdvReac Type Severity Reaction Status Date / Time No Known Allergies Allergy Verified 06/30/18 09:58 Home Medications: Ambulatory Orders NK [No Known Home Medication] 06/30/18 Asthma: Yes Cancer: No Cardiac Disorders: No CVA: No COPD: No CHF: No DVT: No Dementia: No - Surgical History Abdominal Surgery: No Appendectomy: No Cardiac Surgery: No Cholecystectomy: No Gastric Stapling: No GI Surgery: No Lung Surgery: No Neurologic Surgery: No Orthopedic Surgery: No - Immunization History Immunization Up to Date: Yes - Suicide/Smoking/Psychosocial Hx Smoking Status: Yes Smoking History: Never smoked Have you smoked in the past 12 months: Yes Number of Cigarettes Smoked Daily: 20 'Breaking Loose' booklet given: 12/08/17 Hx Alcohol Use: Yes (Daily Chel) Drug/Substance Use Hx: Yes (Marijuana) Substance Use Type: None Review of Systems - Review of Systems Able to Perform ROS?: Yes Is the patient limited [place] proficient: No Constitutional: No: Symptoms Reported HEENTM: No: Symptoms Reported Respiratory: No: Symptoms reported Cardiac (ROS): No: Symptoms Reported ABD/GI: No: Symptoms Reported, See HPI, Abdominal Distended, Abd. Pain w/ defecation, Blood Streaked Bowels, Constipated, Diarrhea, Difficulty Swallowing , Nausea, Poor Appetite, Poor Fluid Intake, Rectal Bleeding, Vomiting, Indigestion, Abdominal cramping, Tarry Stools, Other : No: Symptoms Reported, See HPI, Burning, Dysuria, Discharge, Frequency, Flank Pain, Hematuria, Incontinence, Pain, Urgency, Testicular Mass, Testicular Swelling, Lesions, Testicular Pain, Other Musculoskeletal: No: Back Pain All Other Systems: Reviewed and Negative *Physical Exam - Vital Signs Last Vital Signs Temp Pulse Resp BP Pulse Ox 98.2 F 79 16 138/93 100 06/30/18 09:58 06/30/18 09:58 06/30/18 09:58 06/30/18 09:58 06/30/18 09:58 - Physical Exam General Appearance: Yes: Nourished, Appropriately Dressed. No: Apparent Distress HEENT: positive: Normal ENT Inspection, Normal Voice Neck: positive: Supple Respiratory/Chest: negative: Respiratory Distress, Accessory Muscle Use Cardiovascular: positive: Regular Rhythm, Regular Rate Gastrointestinal/Abdominal: positive: Flat, Soft. negative: Tender Male Genitalia: positive: normal genitalia. negative: discharge Musculoskeletal: positive: Normal Inspection. negative: CVA Tenderness Extremity: positive: Normal Inspection, Normal Range of Motion Integumentary: positive: Normal Color, Dry, Warm Neurologic: positive: Fully Oriented, Alert, Normal Mood/Affect Moderate Sedation - Procedure Monitoring Vital Signs: Procedure Monitoring Vital Signs Temperature 98.2 F 06/30/18 09:58 Pulse Rate 79 06/30/18 09:58 Respiratory Rate 16 06/30/18 09:58 Blood Pressure 138/93 06/30/18 09:58 O2 Sat by Pulse Oximetry (%) 100 06/30/18 09:58 Medical Decision Making - Medical Decision Making 06/30/18 10:40 She with no significant past medical history present for treatment of possible Chlamydia status post having unprotected sex with a female partner a week ago. Patient is not sure if partner has any STI. Urine gonorrhea and chlamydia tests ordered. Ceftriaxone 250 mg IM and Zithromax 1 g by mouth given. Patient is stable for discharge. *DC/Admit/Observation/Transfer Diagnosis at time of Disposition: Possible exposure to STD - Discharge Dispostion Disposition: HOME Condition at time of disposition: Stable Decision to Admit order: No - Referrals Referrals: Yan Lyles MD, [Primary Care Provider] - - Patient Instructions - Post Discharge Activity
== END 2018-06-30 10:46 | disposition home or self-care (01) ==
LOC: JERFT 09:48
DX: Z20.2 Contact with and (suspected) exposure to infections with a predominantly sexual mode of transmission (principal)
CPT/HCPCS: 36415; 87491; 87591; 99281-25

== ENCOUNTER 2020-08-02 10:11 | Emergency (ER) | payer OTHER ==
[2020-08-02 10:38] VITALS: BP 180/100; PULSE 88; BMI 38.0
== END 2020-08-02 11:03 | disposition home or self-care (01) ==
LOC: JERFT 10:11
DX: M62.830 Muscle spasm of back (principal)
CPT/HCPCS: 99282-25

== ENCOUNTER 2020-09-27 11:21 | Emergency (ER) | payer OTHER ==
[2020-09-27 11:28] VITALS: BP 160/92; PULSE 72; TEMP 98.5; BMI 29.1
== END 2020-09-27 11:50 | disposition home or self-care (01) ==
LOC: JER 11:21 → JERFT 11:21
DX: R22.0 Localized swelling, mass and lump, head (principal)
CPT/HCPCS: 99282-25

== ENCOUNTER 2021-03-14 12:37 | Emergency (ER) | payer OTHER ==
[2021-03-14 12:49] VITALS: BP 144/87; PULSE 87; TEMP 98.8; BMI 27.1
[2021-03-14] MEDS ORDERED: IBUPROFEN 600 MG TABLET (FP) PO ONE ×2 (13:37→14:08)
== END 2021-03-14 14:52 | disposition home or self-care (01) ==
LOC: JERFT 12:37
DX: M25.561 Pain in right knee (principal)
CPT/HCPCS: 73562-TC-RT-FY; 99283-25

== ENCOUNTER 2021-08-04 08:46 | Emergency (ER) | payer OTHER ==
[2021-08-04 08:50] VITALS: BP 139/84; PULSE 73; TEMP 98; BMI 25.7
== END 2021-08-04 09:20 | disposition home or self-care (01) ==
LOC: JERFT 08:46
DX: H10.31 Unspecified acute conjunctivitis, right eye (principal)
CPT/HCPCS: 99283-25

== ENCOUNTER 2022-02-25 16:15 | Emergency (ER) | payer OTHER ==
[2022-02-25 16:25] VITALS: BP 153/92; PULSE 85; RESP 18; TEMP 98.2; BMI 27.1
[2022-02-25] MEDS ORDERED: KETOROLAC TROMETHAMINE 30 MG/1 ML VIAL IVPUSH ONE (16:51)
[2022-02-25] MEDS ORDERED: KETOROLAC TROMETHAMINE 30 MG/1 ML VIAL ONE (17:31)
[2022-02-25 17:51] LABS: BASO % 0.2 % (0-2.0); EOS % 0.1 % (0-4.5); HEMATOCRIT 45.5 % (35.4-49); HEMOGLOBIN 14.6 GM/dL (11.7-16.9); LYMPH % 13.3 % (8-40); MCH 27.5 pg (25.7-33.7); MCHC 32.2 g/dl (32.0-35.9); MEAN CELL VOLUME 85.3 fl (80-96); MEAN PLT VOLUME 8.1 fl (7.5-11.1); MONO % 3.8 % (3.8-10.2); NEUT % 82.6 % (42.8-82.8); PLATELET COUNT 254 10^3/uL (134-434); RBC 5.33 M/mm3 (4.00-5.60); RDW 15.1 % (11.9-15.9); WHITE BLOOD COUNT 13.3 K/mm3 (4.0-10.0)
[2022-02-25 18:05] LABS: ALBUMIN 4.4 g/dl (3.4-5.0); BLOOD UREA NITROGEN 15.8 mg/dL (7-18); CALCIUM 9.1 mg/dL (8.5-10.1)
[2022-02-25 18:08] LABS: CREATININE 1.2 mg/dL (0.55-1.3)
[2022-02-25 18:10] LABS: BILIRUBIN,TOTAL 0.4 mg/dL (0.2-1); TOT PROT 8.3 g/dl (6.4-8.2)
[2022-02-25] MEDS ORDERED: AMOX TR/POT CLAV 500MG/125MG TABLETS (FP) PO ONE (20:09)
[2022-02-25] MEDS ORDERED: AMOX TR/POT CLAV 500MG/125MG TABLETS (FP) ONE (20:10)
== END 2022-02-25 20:43 | disposition home or self-care (01) ==
LOC: JERFT 16:15 → JER 16:15 → JERFT 20:43
PROC: 3E0333Z Introduction of Anti-inflammatory into Peripheral Vein, Percutaneous Approach (ICD-10-PCS; principal; 2022-02-25)
DX: K02.9 Dental caries, unspecified (principal)
CPT/HCPCS: 36415; 70487-TC; 80053; 85025; 99284-25; Q9967

== ENCOUNTER 2022-10-20 14:42 | Emergency (ER) | payer OTHER ==
[2022-10-20 14:53] VITALS: BP 139/80; PULSE 61; RESP 18; TEMP 98; BMI 27.7
== END 2022-10-20 16:07 | disposition home or self-care (01) ==
LOC: JERFT 14:42
DX: M54.50 Low back pain, unspecified (principal); X50.0XXA Overexertion from strenuous movement or load, initial encounter; Y93.B3 Activity, free weights; Y92.39 Other specified sports and athletic area as the place of occurrence of the external cause
CPT/HCPCS: 99282-25

== ENCOUNTER 2023-02-17 14:56 | Emergency (ER) | payer OTHER ==
[2023-02-17 15:10] VITALS: BP 143/90; PULSE 76; RESP 18; TEMP 98.2; BMI 27.8
[2023-02-17 16:13] LABS: EPI CELLS 6 /uL (0-25.1); HYALINE CASTS 1 /uL (0-3.1); PH,URINE 6.5 (5.0-8.0); URINE APPEARANCE CLEAR; URINE BACTERIA 3 /uL (0-1359); URINE BILIRUBIN NEGATIVE (NEGATIVE); URINE COLOR YELLOW; URINE GLUCOSE (UA) NEGATIVE (NEGATIVE); URINE KETONE NEGATIVE (NEGATIVE); URINE LEUK ESTERASE TRACE (NEGATIVE); URINE NITRITE NEGATIVE (NEGATIVE); URINE PROTEIN NEGATIVE (NEGATIVE); URINE RBC 25 /uL (0-23.9); URINE WBC 58 /uL (0-25.8)
[2023-02-17 17:18] LABS: SYPHILIS W/ RPR CONF NON-REACTIVE (NONREACTIVE)
[2023-02-17 17:47] LABS: HIV INTERPRETATION NEGATIVE (NEGATIVE)
== END 2023-02-17 16:07 | disposition home or self-care (01) ==
LOC: JERFT 14:56
DX: Z11.3 Encounter for screening for infections with a predominantly sexual mode of transmission (principal)
CPT/HCPCS: 36415; 81003; 86780; 87086; 87389; 87491; 87591; 99284-25

== ENCOUNTER 2023-11-16 16:38 | Emergency (ER) | payer OTHER ==
[2023-11-16 16:48] VITALS: BP 148/91; PULSE 79; RESP 18; TEMP 98; BMI 24.5
== END 2023-11-16 18:45 | disposition home or self-care (01) ==
LOC: JERFT 16:38
DX: L73.9 Follicular disorder, unspecified (principal)
CPT/HCPCS: 99283-25

== ENCOUNTER 2024-03-16 14:08 | Emergency (ER) | payer OTHER ==
[2024-03-16 14:16] VITALS: BP 147/88; PULSE 83; RESP 18; TEMP 98.6; BMI 27.8
== END 2024-03-16 15:52 | disposition home or self-care (01) ==
LOC: JERFT 14:08
DX: H60.92 Unspecified otitis externa, left ear (principal)
CPT/HCPCS: 99283-25

== ENCOUNTER 2024-04-05 07:48 | Emergency (ER) | payer OTHER ==
[2024-04-05 07:55] VITALS: BP 140/80; PULSE 83; RESP 20; TEMP 97.9; BMI 29.0
== END 2024-04-05 09:02 | disposition home or self-care (01) ==
LOC: JERFT 07:48
PROC: 0YQJXZZ Repair Left Lower Leg, External Approach (ICD-10-PCS; principal; 2024-04-05)
DX: S81.812A Laceration without foreign body, left lower leg, initial encounter (principal); W26.8XXA Contact with other sharp object(s), not elsewhere classified, initial encounter; Y99.0 Civilian activity done for income or pay
CPT/HCPCS: 99283-25

== ENCOUNTER 2024-04-18 09:17 | Emergency (ER) | payer OTHER ==
[2024-04-18 11:30] VITALS: BP 153/91; PULSE 82; RESP 17; TEMP 98; BMI 31.4
== END 2024-04-18 10:34 | disposition home or self-care (01) ==
LOC: JERFT 09:17
DX: Z48.02 Encounter for removal of sutures (principal)
CPT/HCPCS: 99281-25

== ENCOUNTER 2024-05-11 13:54 | Emergency (ER) | payer OTHER ==
[2024-05-11 14:01] VITALS: TEMP 98.4; BMI 27.1
[2024-05-11 15:10] VITALS: BP 164/100; PULSE 78; RESP 19
== END 2024-05-11 15:53 | disposition home or self-care (01) ==
LOC: JERFT 13:54
DX: R21 Rash and other nonspecific skin eruption (principal)
CPT/HCPCS: 99283-25